=== PATIENT | male | born 1965 | race Caucasian/White ===

== ENCOUNTER 2024-06-25 09:47 | Emergency (ER) | payer OTHER ==
[~2024-06-25] VITALS: Ht 182.9 cm; Wt 91.2 kg
[2024-06-25 09:49] VITALS: BP 114/81; PULSE 115; TEMP 98.1; O2SAT 98
[2024-06-25] MEDS: LIDOcaine 1% 30ml preserv. free vial SQ STA (11:26)
[2024-06-25 12:04] VITALS: RESP 18
== END 2024-06-25 12:13 | disposition home or self-care (01) ==
LOC: ER 09:48
DX: S63.282A Dislocation of proximal interphalangeal joint of right middle finger, initial encounter (principal); W01.0XXA Fall on same level from slipping, tripping and stumbling without subsequent striking against object, initial encounter; Y93.89 Activity, other specified; Y92.89 Other specified places as the place of occurrence of the external cause; Y99.0 Civilian activity done for income or pay
CPT/HCPCS: 26770; 73140; 99284